=== PATIENT | female | born 1975 | race Caucasian/White ===

== ENCOUNTER 2016-10-28 08:27 | Emergency (ER) | payer OTHER ==
[2016-10-28 08:37] VITALS: RESP 18; TEMP 98
[2016-10-28] MEDS ORDERED: LET GEL TOPICAL 1 EA SYR TP ONE (08:59)
--- NOTE | 2016-10-28 09:03 | EDPHY ---
H & P Stated Complaint: coming back from camping last night fell out of car hitting head/ rt side o Time Seen by Provider: 10/28/16 08:38 HPI/ROS: This patient reports a syncopal episode with head injury. She explains that she and her family were- and daughter were camping near [place] over the weekend and yesterday, Friday at 4:30 p.m. while at a gas station after going in to the station walking around a bit she returned to their the Car, opened the door, bent forward slightly and upon standing upright felt abruptly lightheaded for a fleeting moment prior to syncopal episode. She awakened on the ground with someone asking if she was okay having struck her occiput on the pavement and her right elbow. She reports the scalp wound from the incident and headache 7/10, generalized in location since that time. She was able to sleep last night but came in today for evaluation. She reports taking 600 mg of ibuprofen at 6:00 a.m. with partial relief of her headache now a 5 to 6/10 intensity headache. She reports that she had brief scalp bleeding that stopped after short time. She shower prior to arrival in clean the scalp wound but has not visualized. She reports feeling well prior to the episode. She admits that she may not have been drinking as much fluid as usual while camping. ROS: Constitutional: No fevers or chills. She reports feeling weak for few minutes after the events per recovering quickly. She did have some seasonal allergies while camping and to clear to an with resolution of her coryza and sneezing. HEENT: She reports having some left ear discomfort over the past week that is mild intensity with occasional popping sound. Pulmonary: No cough, or shortness of breath. She does report a ache in the right lower rib area/right lower chest that occasionally is slightly worse with a deep breath. She has noticed this ache to varying degrees over the past 2 months. Cardiovascular: She reports chest pain other than what is mentioned in Pulmonary. No heart palpitations. No lightheadedness since the episode. No leg swelling or pain. GI: She reports no abdominal pain. No recent nausea vomiting or diarrhea. She reports feeling of diastasis in her abdominal wall since her when she does sit-ups. : No urinary symptoms. Integumentary: No skin rash. Neuro: She denies any confusion since the episode. No focal numbness tingling weakness. She had no bowel or bladder incontinence from the episode. No shaking activity was noted by bystanders. No postictal period. Endocrine: No symptoms Complete review of symptoms is otherwise negative. Source: Patient Exam Limitations: No limitations - Personal History LMP (Females 10-55): 22-28 Days Ago Current Tetanus Diphtheria and Acellular Pertussis (TDAP): Yes - Medical/Surgical History PMH: Otherwise healthy. No prior syncopal episodes. Family history is negative for syncope, WPW, premature cardiac , PE or DVT Other PMH: denies - Family History Significant Family History: No pertinent family hx - Social History Smoking Status: Never smoked Alcohol Use: Occasionally (The patient typically has wine on weekends in reports that she had to 3 drinks on Friday but none on Friday.) Drug Use: Marijuana (She rarely has marijuana. She had none over the weekend.) - Physical Exam Exam: Physical exam: Vital signs are normal except for slight hypertension 154/62 and slight hypoxia with an SaO2 of 94% on room air General: Patient is in no acute distress. HEENT: Is no external evidence of trauma on exam except for a superficial laceration to the occiput-3 cm long [id number] full-thickness. There is no foreign bodies present and no bleeding. with associated mild tenderness but no significant hematoma or bony step-off. No active bleeding. Nose atraumatic. Ears: Clear bilaterally with no hemotympanum. Oropharynx: No dental trauma or malocclusion. No intraoral lacerations. Eyes: Pupils are equal and reactive to light. Extraocular motions are intact. Optic fundi: Clear with no papilledema or hemorrhage. Neck: Trachea is midline with no stridor. The patient has no midline neck tenderness. She has right paraspinous cervical muscular tenderness that is mild. and retains a full range of motion without increase in pain. Lungs: Clear to auscultation bilaterally Cardiac: Regular rate and rhythm no murmur gallop or rub. Chest: Mild right lower chest wall tenderness at the site of the right lower chest discomfort. Abdomen: Normoactive, soft, minimal right upper quadrant tenderness with no guarding rebound or hepatomegaly. No splenomegaly. Back: Nontender Extremities: Atraumatic except for minimal tenderness to the right elbow olecranon without significant swelling. She retains full range of motion of the elbow without pain Neuro: GCS of 15. Cranial nerves II through XII intact. 3 out of 3 five- minute memory is intact. Cerebellar exam is normal as judged by symmetric rapid hand movements bilaterally. No pronator drift. No sensory or motor deficits are appreciated. Initial differential diagnosis: Vasovagal syncope he with possible dehydration , PE, dysrhythmia, cholecystitis, sick sinus syndrome, WPW, concussion, scalp laceration, neck strain, elbow contusion, Constitutional: Initial Vital Signs Temperature (C) 36.6 C 10/28/16 08:35 Heart Rate 69 10/28/16 08:35 Respiratory Rate 18 10/28/16 08:35 Blood Pressure 154/62 H 10/28/16 08:35 O2 Sat (%) 94 10/28/16 08:35 O2 Delivery Mode Room Air Allergies/Adverse Reactions: No Known Allergies Allergy (Unverified 03/10/10 16:34) Home Medications: Medication Instructions Recorded NK [No Known Home Meds] 10/28/16 Medical Decision Making - Diagnostics EKG Interpretation: 12 lead EKG performed at 9:07 a.m. indication syncope rule out dysrhythmia, WPW or other reveals sinus rhythm at 59 Intervals: Normal throughout [place]: Normal throughout Overall assessment: Normal EKG For complete read please refer to trace master Imaging Results: Chest x-ray: Normal by my interpretation Imaging: I viewed and interpreted images myself ED Course/Re-evaluation: Patient remained stable with no lightheadedness other complaints while here. Her scalp wounds clean with soapy water by our nurse after let solution was applied. The wound is superficial and does not warrant sutures A review of her studies reveals a normal CBC, electrolytes, LFTs, normal D-dimer , negative HCG Her EKG is normal. Chest x-ray appears normal by my interpretation in short, find no red flag findings in this patient's workup that would suggest significant cardiopulmonary pathology, or other concerns. We ruled out anemia, ruled out , no findings to suggest PE. I think that her right lower chest discomfort is actually in the chest wall may be related to her recent sit -ups. Her head injury has no red flag findings-no retrograde amnesia, 3/3 5 Min memory intact, no clinical evidence to suggest intracranial hemorrhage or other complicating factors. I counseled her regarding this. I suspect that she was a bit dehydrated after camping and had a vasovagal syncope in part related to dehydration. - Data Points Laboratory Results: Laboratory Results 10/28/16 09:06 10/28/16 09:06 Medications Given: Discontinued Medications Acetaminophen (Tylenol) 975 mg PO EDNOW ONE Stop: 10/28/16 10:25 Last Admin: 10/28/16 10:34 Dose: 975 mg Tetracaine/Epinephrine/Lidocaine (Let Gel Topical) 1 ea TP EDNOW ONE Stop: 10/28/16 09:00 Last Admin: 10/28/16 09:17 Dose: 1 ea Departure - Departure Disposition: Home, Routine, Self-Care Clinical Impression: Scalp wound, Minor head injury, Syncope, Neck muscle strain Condition: Good Instructions: Syncope (ED), Head Injury (ED), Acute Wounds (ED) Additional Instructions: Diagnoses: 1. Syncope 2. Minor head injury 3. Scalp wound 4. Neck muscle strain Plan: Drink plenty fluids Tylenol and ibuprofen for headache as needed Limit activity that would petit risk for head injury until 7 days after resolution of her current headache Return if he develops unbearable headache, confusion, vomiting more than once or other concerns. Referrals: Carin Morales MD [Primary Care Provider] - As per Instructions
--- NOTE | 2016-10-28 09:09 | CPEKG ---
Heart Rate: 59 RR Interval: 1017 P-R Interval: 136 QRSD Interval: 80 QT Interval: 424 QTC Interval: 420 P [place]: 73 QRS [place]: 73 T Wave [place]: 65 EKG Severity - NORMAL ECG - EKG Impression: SINUS RHYTHM Electronically Signed By: Dilip Catherine 28-Oct-2016 09:14:46
[2016-10-28 09:18] LABS: % IMMATURE GRANULYOCYTES 0.2 % (0.0-1.1); ABSOLUTE IMMATURE GRANULOCYTES 0.02 10^3/uL (0.00-0.10); ADD DIFF? NO; ADD MORPH? NO; ADD SCAN? NO; ATYPICAL LYMPHOCYTE FLAG 10 (0-99); FRAGMENT RBC FLAG 0 (0-99); HEMATOCRIT 39.7 % (38.0-47.0); HEMOGLOBIN 13.4 g/dL (12.6-16.3); LEFT SHIFT FLG 0 (0-99); LIPEMIA HEMOLYSIS FLAG 90 (0-99); MEAN CELL HEMOGLOBIN CONCENTR. 33.8 g/dL (32.4-36.7); MEAN CELL VOLUME 94.7 fL (81.5-99.8); MEAN PLATELET VOLUME 9.2 fL (8.7-11.7); PLATELET CLUMPS FLAG 0 (0-99); PLATELET COUNT 246 10^3/uL (150-400); RED BLOOD CELL COUNT 4.19 10^6/uL (4.18-5.33)
[2016-10-28 09:33] LABS: ALANINE AMINOTRANSFERASE 32 IU/L (9-52); ALBUMIN 4.3 g/dL (3.5-5.0); ALKALINE PHOSPHATASE 45 IU/L (38-126); ANION GAP 15 mEq/L (8-16); ASPARTATE AMINOTRANSFERASE 38 IU/L (14-46); BILIRUBIN,TOTAL 0.5 mg/dL (0.1-1.4); CARBON DIOXIDE 22 mEq/l (22-31); CHLORIDE 105 mEq/L (97-110); CREATININE 0.8 mg/dL (0.6-1.0); GLOMERULAR FILTRATION RATE > 60; GLUCOSE 65 mg/dL (70-100); POTASSIUM 4.2 mEq/L (3.5-5.2); SODIUM 142 mEq/L (134-144); TOTAL PROTEIN 7.3 g/dL (6.3-8.2)
[2016-10-28 10:04] LABS: COLOR YELLOW; LEUKOCYTE ESTERASE,URINE NEGATIVE (NEGATIVE); NITRITE,URINE NEGATIVE (NEGATIVE)
[2016-10-28] MEDS ORDERED: ACETAMINOPHEN 325 MG TAB PO ONE (10:24)
[2016-10-28 10:36] VITALS: BP 128/66; PULSE 77; O2SAT 97
== END 2016-10-28 10:35 | disposition home or self-care (01) ==
LOC: CED 08:27
DX: S01.00XA Unspecified open wound of scalp, initial encounter (principal); S16.1XXA Strain of muscle, fascia and tendon at neck level, initial encounter; R55 Syncope and collapse; W18.09XA Striking against other object with subsequent fall, initial encounter; Y92.481 Parking lot as the place of occurrence of the external cause; Y99.8 Other external cause status; Y93.01 Activity, walking, marching and hiking
CPT/HCPCS: 71020-PO; 80053-PO; 81003-PO; 84703-PO; 85025-PO; 85378-PO

== ENCOUNTER → 2017-06-20 | Outpatient (CLI) | payer OTHER | LOC: FIMAGING 09:43 | PROVIDERS: ATTEND Obstetrics & Gynecology | DX: Z12.31 Encounter for screening mammogram for malignant neoplasm of breast (principal); Z80.3 Family history of malignant neoplasm of breast ==

== ENCOUNTER → 2018-07-13 | Outpatient (CLI) | payer OTHER | LOC: FIMAGING 10:40 | PROVIDERS: ATTEND Obstetrics & Gynecology | DX: Z12.31 Encounter for screening mammogram for malignant neoplasm of breast (principal); Z80.3 Family history of malignant neoplasm of breast ==